=== PATIENT | male | born 1955 | race Caucasian/White ===

== ENCOUNTER 2018-05-25 13:44 | Emergency (ER) | payer BC ==
--- NOTE | 2018-05-25 13:53 | ERPHSYRPT ---
- History of Present Illness Time Seen by Provider: 05/25/18 13:53 Historian: patient, family Exam Limitations: no limitations Physician History: 62 y/o white male presents with vomiting and diarrhea for 3 days. other family members had similar sx but his sx have persisted. he cannot hold any fluids down orally. he denies cp, soa and denies abd pain. pt has continued to take his "water pill" Timing/Duration: day(s) Activities at Onset: none Quality: other (no sig abd pain) Abdominal Pain Onset Location: other (none) Severity of Pain-Max: none Severity of Pain-Current: none Modifying Factors: Improves With: eating (worsens), vomiting, other (diarrhea) Associated Symptoms: diarrhea, loss of appetite, nausea, vomiting, weakness, No back, No chest pain, No diaphoresis, No shortness of breath Allergies/Adverse Reactions: No Known Drug Allergies Allergy (Verified 05/25/18 14:01) Home Medications: Aspirin EC 81 mg [Ecotrin 81 mg] 81 mg PO DAILY 05/25/18 [History] Baclofen 1 tab PO TID 05/25/18 [History] Carbamazepine 200 mg PO BID 05/25/18 [History] Cyproheptadine HCl 4 mg PO BID 05/25/18 [History] Ezetimibe 10 mg PO DAILY 05/25/18 [History] Furosemide 40 mg PO DAILY 05/25/18 [History] Losartan Potassium 100 mg PO DAILY 05/25/18 [History] Metoprolol Succinate 100 mg [Toprol Xl 100 MG] 100 mg PO DAILY 05/25/18 [ History] PARoxetine HCl [Paroxetine HCl] 10 mg PO DAILY 05/25/18 [History] Potassium Chloride [Klor-Con M20] 20 meq PO DAILY 05/25/18 [History] Pyridoxine HCl (Vitamin B6) [B-6] 100 mg PO DAILY 05/25/18 [History] Warfarin Sodium 5 mg [Coumadin 5 MG] 5 mg PO UD 05/25/18 [History] metOLazone [Metolazone] 2.5 mg PO 3XW 05/25/18 [History] - Review of Systems Constitutional: Weakness Eyes: No Symptoms Ears, Nose, & Throat: No Symptoms Respiratory: No Symptoms, No Cough, No Dyspnea, No Stridor, No Wheezing Cardiac: No Symptoms, No Chest Pain, No Palpitations, No Syncope Abdominal/Gastrointestinal: Nausea, Vomiting, Diarrhea, Appetite Changes ( decreased), No Abdominal Pain Genitourinary Symptoms: No Symptoms, No Dysuria, No Frequency, No Hematuria Musculoskeletal: No Symptoms, No Back Pain Skin: No Symptoms Neurological: No Symptoms Psychological: No Symptoms Endocrine: No Symptoms Hematologic/Lymphatic: No Symptoms Immunological/Allergic: No Symptoms All Other Systems: Reviewed and Negative - Past Medical History Pertinent Past Medical History: Yes Neurological History: No Pertinent History ENT History: No Pertinent History Respiratory History: No Pertinent History Endocrine Medical History: No Pertinent History Musculoskeletal History: No Pertinent History GI Medical History: No Pertinent History History: No Pertinent History Psycho-Social History: No Pertinent History Male Reproductive Disorders: No Pertinent History - Past Surgical History Neuro Surgical History: No Pertinent History Respiratory: No Pertinent History Gastrointestinal: No Pertinent History Genitourinary: No Pertinent History Musculoskeletal: No Pertinent History Male Surgical History: No Pertinent History - Nursing Vital Signs Nursing Vital Signs: Initial Vital Signs Temperature 97.8 F 05/25/18 13:50 Pulse Rate 79 05/25/18 13:50 Blood Pressure 115/84 05/25/18 13:50 O2 Sat by Pulse Oximetry 96 05/25/18 13:50 Pain Scale Pain Intensity 5 - Physical Exam General Appearance: alert, obese, other (weak) Eye Exam: PERRL/EOMI, eyes nml inspection Ears, Nose, Throat Exam: dry mucous membranes Neck Exam: normal inspection, non-tender, supple, full range of motion Respiratory Exam: normal breath sounds, lungs clear, airway intact, No chest tenderness, No respiratory distress, No accessory muscle use, No rhonchi, No wheezing, No stridor Cardiovascular Exam: regular rate/rhythm, normal heart sounds, normal peripheral pulses Gastrointestinal/Abdomen Exam: soft, normal bowel sounds, No tenderness, No guarding, No rebound Rectal Exam: not done Back Exam: normal inspection, normal range of motion, No CVA tenderness, No vertebral tenderness Extremity Exam: normal inspection, normal range of motion, pelvis stable Neurologic Exam: alert, oriented x 3, cooperative, pantograph setter II-XII nml as tested Skin Exam: normal color, warm, dry Lymphatic Exam: adenopathy SpO2 Interpretation: normal Oxygen Delivery: Room Air - Course Nursing assessment & vital signs reviewed: Yes Ordered Tests: Active Orders 24 hr Category Date Time Status IV Insertion STAT Care 05/25/18 14:01 Active AMYLASE Stat Lab 05/25/18 14:15 Completed CBC W DIFF Stat Lab 05/25/18 14:15 Completed CMP Stat Lab 05/25/18 14:15 Completed LIPASE Stat Lab 05/25/18 14:15 Completed UA W/RFX UR CULTURE Stat Lab 05/25/18 Completed Medication Summary Generic Name Dose Route Start Last Admin Trade Name Freq PRN Reason Stop Dose Admin Sodium Chloride 1,000 mls @ 999 mls/hr 05/25/18 19:22 Sodium Chloride 0.9% 1000 Ml IV 05/25/18 20:22 .Q1H1M STA Potassium Bicarbonate 25 meq 05/25/18 19:23 K-Lyte 25 Meq PO 05/25/18 19:24 STAT ONE Discontinued Medications Generic Name Dose Route Start Last Admin Trade Name Freq PRN Reason Stop Dose Admin Sodium Chloride 1,000 mls @ 999 mls/hr 05/25/18 14:01 05/25/18 16:18 Sodium Chloride 0.9% 1000 Ml IV 05/25/18 15:01 Infused .Q1H1M STA Infusion Sodium Chloride Confirm 05/25/18 14:37 Sodium Chloride 0.9% 1000 Ml Administered 05/25/18 14:38 Dose 1,000 mls @ ud .ROUTE .STK-MED ONE Potassium Chloride 20 meq in 100 mls @ 50 mls/hr 05/25/18 14:57 05/25/18 15: 02 Potassium Chloride 20 Meq In Water 100ml IV 05/25/18 16:56 50 mls/hr STAT ONE Administration Potassium Chloride Confirm 05/25/18 15:00 Potassium Chloride 20 Meq In Water 100ml Administered 05/25/18 15:01 Dose 100 mls @ ud IV .STK-MED ONE Sodium Chloride 1,000 mls @ 999 mls/hr 05/25/18 15:54 05/25/18 18:16 Sodium Chloride 0.9% 1000 Ml IV 05/25/18 16:54 Infused .Q1H1M STA Infusion Sodium Chloride Confirm 05/25/18 16:20 Sodium Chloride 0.9% 1000 Ml Administered 05/25/18 16:21 Dose 1,000 mls @ ud .ROUTE .STK-MED ONE Ondansetron HCl 4 mg 05/25/18 14:01 05/25/18 14:42 Zofran 4 Mg/2 Ml Vial IV 05/25/18 14:02 4 mg STAT ONE Administration Ondansetron HCl Confirm 05/25/18 14:37 Zofran 4 Mg/2 Ml Vial Administered 05/25/18 14:38 Dose 4 mg .ROUTE .STK-MED ONE Potassium Bicarbonate 25 meq 05/25/18 15:54 05/25/18 16:39 K-Lyte 25 Meq PO 05/25/18 15:55 25 meq STAT ONE Administration Potassium Bicarbonate Confirm 05/25/18 16:20 K-Lyte 25 Meq Administered 05/25/18 16:21 Dose 25 meq .ROUTE .STK-MED ONE Lab/Rad Data: Laboratory Result Diagrams 05/25/18 14:15 05/25/18 14:15 Laboratory Results 05/25/18 05/25/18 05/25/18 Range/Units Unknown 14:15 14:15 WBC (4.0-10.5) K/mm3 RBC (4.1-5.6) M/mm3 Hgb (12.5-18.0) gm/dl Hct (42-50) % MCV (78-100) fl MCH (26-32) pg MCHC (32-36) g/dl RDW (11.5-14.0) % Plt Count (150-450) K/mm3 MPV (6-9.5) fl Gran % (36.0-66.0) % Eos # (Auto) (0-0.5) Absolute Lymphs (auto) (1.0-4.6) Absolute Monos (auto) (0.0-1.3) Lymphocytes % (24.0-44.0) % Monocytes % (0.0-12.0) % Eosinophils % (0.00-5.0) % Basophils % (0.0-0.4) % Absolute Granulocytes (1.4-6.9) Basophils # (0-0.4) Sodium 138 (137-145) mmol/L Potassium 2.6 L* (3.5-5.1) mmol/L Chloride 96 L (98-107) mmol/L Carbon Dioxide 30 (22-30) mmol/L Anion Gap 15.1 H (5-15) MEQ/L BUN 29 H (9-20) mg/dL Creatinine 0.99 (0.66-1.25) mg/dL Estimated GFR > 60.0 ML/MIN Glucose 126 H (74-106) mg/dL Calcium 8.9 (8.4-10.2) mg/dL Total Bilirubin 1.20 (0.2-1.3) mg/dL AST 69 H (17-59) U/L ALT 60 H (0-50) U/L Alkaline Phosphatase 150 H (38-126) U/L Serum Total Protein 7.4 (6.3-8.2) g/dL Albumin 4.3 (3.5-5.0) g/dL Amylase 74 (30-110) U/L Lipase 139 (23-300) U/L Urine Color YELLOW (YELLOW) Urine Appearance CLEAR (CLEAR) Urine pH 7.0 (5-6) Ur Specific [place] 1.018 (1.005-1.025) Urine Protein NEGATIVE (Negative) Urine Ketones NEGATIVE (NEGATIVE) Urine Blood SMALL (0-5) Thuan/ul Urine Nitrite NEGATIVE (NEGATIVE) Urine Bilirubin NEGATIVE (NEGATIVE) Urine Urobilinogen 2 (0-1) mg/dL Ur Leukocyte Esterase NEGATIVE (NEGATIVE) Urine WBC (Auto) 0-2 (0-5) /HPF Urine RBC (Auto) 6-10 (0-2) /HPF U Epithel Cells (Auto) NONE (FEW) /HPF Urine Bacteria (Auto) NONE (NEGATIVE) /HPF Urine Culture Reflexed NO (NO) Urine Glucose NEGATIVE (NEGATIVE) mg/dL Influenza Type A Ag NEGATIVE (NEGATIVE) Influenza Type B Ag NEGATIVE (NEGATIVE) RSV (PCR) NEGATIVE (Negative) 05/25/18 Range/Units 14:15 WBC 10.8 H (4.0-10.5) K/mm3 RBC 5.28 (4.1-5.6) M/mm3 Hgb 15.7 (12.5-18.0) gm/dl Hct 45.0 (42-50) % MCV 85.2 (78-100) fl MCH 29.7 (26-32) pg MCHC 34.9 (32-36) g/dl RDW 15.1 H (11.5-14.0) % Plt Count 172 (150-450) K/mm3 MPV 9.2 (6-9.5) fl Gran % 70.0 H (36.0-66.0) % Eos # (Auto) 0.03 (0-0.5) Absolute Lymphs (auto) 1.92 (1.0-4.6) Absolute Monos (auto) 1.26 (0.0-1.3) Lymphocytes % 17.9 L (24.0-44.0) % Monocytes % 11.7 (0.0-12.0) % Eosinophils % 0.3 (0.00-5.0) % Basophils % 0.1 (0.0-0.4) % Absolute Granulocytes 7.53 H (1.4-6.9) Basophils # 0.01 (0-0.4) Sodium (137-145) mmol/L Potassium (3.5-5.1) mmol/L Chloride (98-107) mmol/L Carbon Dioxide (22-30) mmol/L Anion Gap (5-15) MEQ/L BUN (9-20) mg/dL Creatinine (0.66-1.25) mg/dL Estimated GFR ML/MIN Glucose (74-106) mg/dL Calcium (8.4-10.2) mg/dL Total Bilirubin (0.2-1.3) mg/dL AST (17-59) U/L ALT (0-50) U/L Alkaline Phosphatase (38-126) U/L Serum Total Protein (6.3-8.2) g/dL Albumin (3.5-5.0) g/dL Amylase (30-110) U/L Lipase (23-300) U/L Urine Color (YELLOW) Urine Appearance (CLEAR) Urine pH (5-6) Ur Specific [place] (1.005-1.025) Urine Protein (Negative) Urine Ketones (NEGATIVE) Urine Blood (0-5) Thuan/ul Urine Nitrite (NEGATIVE) Urine Bilirubin (NEGATIVE) Urine Urobilinogen (0-1) mg/dL Ur Leukocyte Esterase (NEGATIVE) Urine WBC (Auto) (0-5) /HPF Urine RBC (Auto) (0-2) /HPF U Epithel Cells (Auto) (FEW) /HPF Urine Bacteria (Auto) (NEGATIVE) /HPF Urine Culture Reflexed (NO) Urine Glucose (NEGATIVE) mg/dL Influenza Type A Ag (NEGATIVE) Influenza Type B Ag (NEGATIVE) RSV (PCR) (Negative) - Progress Progress: improved, re-examined Progress Note: 05/25/18 19:24 "i feel a whole helluvalot better" Counseled pt/family regarding: lab results, diagnosis, need for follow-up - Departure Time of Disposition: 19:25 Departure Disposition: Home Clinical Impression: Hypokalemia, Vomiting and diarrhea Condition: Stable Critical Care Time: No Referrals: CORBIN [facility] [Primary Care Provider] - Additional Instructions: drink plenty of fluids until tomorrow afternoon. tomorrow afternoon may begin soft diet slowly advancing to regular diet. hold your medications tonight. do not start your water pill for 2 days. call your primary doctor tomorrow for further management. go to hospital lab on 05/27/18 morning to recheck your labs.
[2018-05-25] MEDS ORDERED: Sodium Chloride 0.9% 1000 ML 1,000 ML IV STA ×3 (14:01→19:22)
[2018-05-25] MEDS ORDERED: Zofran 4 MG/2 ML VIAL IV ONE (14:01)
[2018-05-25 14:26] LABS: BASOPHIL % 0.1 % (0.0-0.4); Basophil (Absolute #) 0.01 (0-0.4); Eosinophil % 0.3 % (0.00-5.0); Eosinophil (Absolute #) 0.03 (0-0.5); Granulocyte Absolute (ANC) 7.53 (1.4-6.9); Hemoglobin 15.7 gm/dl (12.5-18.0); Lymphocyte (Absolute #) 1.92 (1.0-4.6); Lymphocytes % 17.9 % (24.0-44.0); Mean Cell Volume 85.2 fl (78-100); Mean Corpuscular Hemoglobin 29.7 pg (26-32); Mean Corpuscular Hgb Concent. 34.9 g/dl (32-36); Mean Platelet Volume 9.2 fl (6-9.5); Monocyte (Absolute #) 1.26 (0.0-1.3); Monocytes % 11.7 % (0.0-12.0); Platelet Count 172 K/mm3 (150-450); Red Blood Count 5.28 M/mm3 (4.1-5.6); Red Cell Distribution Width 15.1 % (11.5-14.0); White Blood Count 10.8 K/mm3 (4.0-10.5)
[2018-05-25] MEDS ORDERED: Zofran 4 MG/2 ML VIAL ONE (14:37)
[2018-05-25] MEDS ORDERED: Sodium Chloride 0.9% 1000 ML 1,000 ML ONE ×3 (14:37→19:26)
[2018-05-25 14:46] LABS: ALBUMIN 4.3 g/dL (3.5-5.0); ALKALINE PHOSPHATASE 150 U/L (38-126); AMYLASE 74 U/L (30-110); ANION GAP 15.1 MEQ/L (5-15); BLOOD UREA NITROGEN 29 mg/dL (9-20); CHLORIDE 96 mmol/L (98-107); Calcium 8.9 mg/dL (8.4-10.2); Carbon Dioxide 30 mmol/L (22-30); Creatinine 1 0.99 mg/dL (0.66-1.25); Glucose 126 mg/dL (74-106); LIPASE 139 U/L (23-300); SGOT/AST 69 U/L (17-59); SGPT/ALT 60 U/L (0-50); SODIUM 138 mmol/L (137-145); Total Protein 7.4 g/dL (6.3-8.2)
[2018-05-25 14:49] LABS: Potassium 2.6 mmol/L (3.5-5.1)
[2018-05-25] MEDS ORDERED: POTASSIUM CHLORIDE 20 mEq IN WATER 100ML 20 MEQ/100 ML BAG IV ONE (14:57)
[2018-05-25] MEDS ORDERED: POTASSIUM CHLORIDE 20 mEq IN WATER 100ML 100 ML IV ONE (15:00)
[2018-05-25 15:02] LABS: INFLUENZA A NEGATIVE (NEGATIVE); INFLUENZA B NEGATIVE (NEGATIVE); RESPIRATORY SYNCTIAL VIRUS NEGATIVE (Negative)
[2018-05-25] MEDS ORDERED: K-LYTE 25 MEQ PO ONE ×2 (15:54→19:23)
[2018-05-25] MEDS ORDERED: K-LYTE 25 MEQ ONE ×2 (16:20→19:27)
[2018-05-25 18:32] LABS: Appearance CLEAR (CLEAR); Bilirubin NEGATIVE (NEGATIVE); Blood SMALL Ery/ul (0-5); Glucose NEGATIVE (NEGATIVE); Ketones NEGATIVE (NEGATIVE); Leukocyte Esterase NEGATIVE (NEGATIVE); Nitrite NEGATIVE (NEGATIVE); Protein,Urine Dip NEGATIVE (Negative); Specific Gravity 1.018 (1.005-1.025); Urobilinogen 2 mg/dL (0-1)
[2018-05-25 20:42] VITALS: BP 133/60; PULSE 64; O2SAT 96
== END 2018-05-25 20:46 | disposition home or self-care (01) ==
LOC: ED 13:44
DX: E87.6 Hypokalemia (principal); R11.2 Nausea with vomiting, unspecified; R19.7 Diarrhea, unspecified; Z79.899 Other long term (current) drug therapy; Z79.01 Long term (current) use of anticoagulants
CPT/HCPCS: 36415; 80053; 81001; 82150; 83690; 85025; 87631; 96360; 96365; 96374; 96375; 99284; J2405; J3480; A9270-GY

== ENCOUNTER 2024-04-28 08:25 | Day surgery (SDC) | payer OTHER ==
[2024-04-28 09:14] VITALS: BP 164/93; PULSE 106; RESP 16; TEMP 96.3; O2SAT 95
[2024-04-28 09:37] LABS: ALBUMIN 4.1 g/dL (3.5-5.0); ANION GAP 14.9 MEQ/L (5-15); BILIRUBIN,TOTAL 1.2 mg/dL (0.2-1.3); Calcium 9.1 mg/dL (8.4-10.2); Creatinine 1 1.32 mg/dL (0.66-1.25); EST GLOMERULAR FILTRATION RATE 59.5 ML/MIN; Total Protein 7.4 g/dL (6.3-8.2)
[2024-04-28 09:40] LABS: Potassium 2.6 mmol/L (3.5-5.1)
[2024-04-28] MEDS: Klor Con PO ONE (11:23)
== END 2024-04-28 12:00 | disposition home or self-care (01) ==
LOC: SDC 08:25
PROVIDERS: ATTEND Surgery
DX: E87.6 Hypokalemia (principal); Z53.8 Procedure and treatment not carried out for other reasons
CPT/HCPCS: 36415; 80053; 84132; 93005; A9270-GY

== ENCOUNTER 2024-05-24 10:23 | Observation (INO) | payer OTHER ==
--- NOTE | 2024-05-24 11:00 | ERPHSYRPT ---
- History of Present Illness Time Seen by Provider: 05/24/24 10:58 Source: patient Exam Limitations: no limitations Patient Subjective Stated Complaint: Abnormal labs- K+ 2.8 Triage Nursing Assessment: Patient ambulated back to ED and transferred self to bed. Patient A+O X 3. Patient's skin pink, warm and dry. Patient states he had routine labs done today for his cardiology appt tomorrow and received a call to come to ED for low potassium. Patient K+ noted to be 2.8. Patient denies pain or discomfort. Physician History: 68-year-old male with history of hypokalemia presents to our ED for treatment of hypokalemia. 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 Workup revealed a potassium of 2.8. Patient sent to our ED for potassium replacement. Patient otherwise asymptomatic. No chest pain or shortness of breath. No nausea vomiting or diaphoresis. Patient feels well voices no other complaints or concerns at this time. Portions of this note were created with voice recognition technology. There may be grammatical, spelling, punctuation or sound alike errors Timing/Duration: today Severity: mild Modifying Factors: Improves With: nothing Associated Symptoms: denies symptoms Allergies/Adverse Reactions: No Known Drug Allergies Allergy (Verified 05/24/24 10:35) Home Medications: Baclofen 20 mg PO BID 05/25/18 [History] Ezetimibe 10 mg PO HS 05/25/18 [History] Furosemide 40 mg PO BID 05/25/18 [History] Warfarin Sodium 5 mg [Coumadin 5 MG] 5 mg PO DAILY 05/25/18 [History] Amlodipine Besylate [Norvasc] 2.5 mg PO DAILY 04/25/24 [History] Atorvastatin Calcium [Lipitor] 40 mg PO HS 04/25/24 [History] Hydroxyzine HCl 25 mg [Atarax 25 mg] 25 mg PO HS PRN 04/25/24 [History] Losartan Potassium [Cozaar] 100 mg PO DAILY 04/25/24 [History] Topiramate 100 mg [Topamax 100 MG] 50 mg PO HS 04/25/24 [History] Venlafaxine HCl ER 75 mg [Effexor XR 75 MG] 75 mg PO BID 04/25/24 [History] Aspirin EC 325 mg [Ecotrin 325 MG] 325 mg PO HS 05/24/24 [History] Hx Influenza Vaccination/Date Given: No Hx Pneumococcal Vaccination/Date Given: No Immunizations Up to Date: Yes Travel Risk - International Travel Have you traveled outside of the country in past 3 weeks: No - Emerging Infectious Disease Are you exhibiting symptoms associated with any current EIDs: No - Review of Systems Constitutional: No Symptoms, No Fever, No Chills Eyes: No Symptoms Ears, Nose, & Throat: No Symptoms Respiratory: No Symptoms, No Cough, No Dyspnea Cardiac: No Symptoms, No Chest Pain, No Edema, No Syncope Abdominal/Gastrointestinal: No Symptoms, No Abdominal Pain, No Nausea, No Vomiting, No Diarrhea Genitourinary Symptoms: No Symptoms, No Dysuria Musculoskeletal: No Symptoms, No Back Pain, No Neck Pain Skin: No Symptoms, No Rash Neurological: No Symptoms, No Dizziness, No Focal Weakness, No Sensory Changes Psychological: No Symptoms Endocrine: No Symptoms Hematologic/Lymphatic: No Symptoms Immunological/Allergic: No Symptoms All Other Systems: Reviewed and Negative - Past Medical History Pertinent Past Medical History: Yes Neurological History: Peripheral Neuropathy ENT History: No Pertinent History Cardiac History: Coronary Artery Disease, Deep Vein Thrombosis, Hypertension Respiratory History: Sleep Apnea Endocrine Medical History: No Pertinent History Musculoskeletal History: Osteoarthritis GI Medical History: No Pertinent History History: No Pertinent History Psycho-Social History: No Pertinent History Male Reproductive Disorders: No Pertinent History Other Medical History: BLOOD CLOTS MAY HAVE CAUSED THE NEUROPATHY, HAS BEEN SEEN BY NEUROLOGISTS. PT SEES DR. PEREZ. A FEW STINTS IN THE HEART - Past Surgical History Past Surgical History: Yes Neuro Surgical History: No Pertinent History Cardiac: Cardiac Stent Respiratory: No Pertinent History Gastrointestinal: No Pertinent History Genitourinary: No Pertinent History Musculoskeletal: Other Male Surgical History: No Pertinent History Other Surgical History: 5 stents. carpal tunnel release. Knee surgery - Social History Smoking Status: Never smoker Exposure to second hand smoke: No Drug Use: none Patient Lives Alone: No - Social Determinants of Health Will the patient participate in the screening: Yes Do you worry about a steady place to live?: No Do you have any problems with any of the following?: No known problems In the past 12 months,have you had to go without utilities?: No Transportation Issues: No Has anyone in your support network made you feel unsafe?: No Have you or anyone in your house had to go without enough: No - Nursing Vital Signs Nursing Vital Signs: Initial Vital Signs O2 Sat by Pulse Oximetry 96 05/24/24 10:31 Pain Scale Pain Intensity 0 - Physical Exam General Appearance: no apparent distress, alert Eye Exam: PERRL/EOMI, eyes nml inspection Ears, Nose, Throat Exam: normal ENT inspection, moist mucous membranes Neck Exam: normal inspection, non-tender, supple, full range of motion Respiratory Exam: normal breath sounds, lungs clear, airway intact, No respiratory distress Cardiovascular Exam: regular rate/rhythm, normal heart sounds, normal peripheral pulses Gastrointestinal/Abdomen Exam: soft, normal bowel sounds, No tenderness, No mass Back Exam: normal inspection, normal range of motion, No CVA tenderness, No vertebral tenderness Extremity Exam: normal inspection, normal range of motion, pelvis stable Neurologic Exam: alert, oriented x 3, cooperative, normal mood/affect, nml cerebellar function, nml station & gait, sensation nml, No motor deficits Skin Exam: normal color, warm, dry, No rash Lymphatic Exam: No adenopathy SpO2 Interpretation: normal SpO2: 96 O2 Delivery: Room Air - Course Nursing assessment & vital signs reviewed: Yes EKG Interpreted by Me: RATE (78), Sinus Rhythm, NORMAL AXIS, NORMAL INTERVALS, NORMAL QRS Ordered Tests: Active Orders 24 hr Category Date Time Status Up With Assistance ROUTINE Activity 05/24/24 18:10 Completed Call Admit Doctor for Orders ON ADMISSION Care 05/24/24 18:10 Completed Code Status Order ROUTINE Care 05/24/24 18:10 Active IV Insertion STAT Care 05/24/24 10:[address] in Observation ROUTINE Care 05/24/24 18:10 Active Telemetry q6h Care 05/24/24 18:10 Completed CBC W DIFF Stat Lab 05/24/24 10:50 Completed CMP Stat Lab 05/24/24 10:50 Completed CMP Stat Lab 05/24/24 16:16 Completed Pulse Oximetry CONTINUOUS RT 05/24/24 18:10 Completed Transfer Order Routine Transfer 05/24/24 Completed Medication Summary Generic Name Dose Route Start Last Admin Trade Name Freq PRN Reason Stop Dose Admin Acetaminophen 650 mg 05/24/24 19:27 Acetaminophen 325 Mg Tablet PO 06/23/24 19:26 Q6H PRN PRN PAIN AND/OR FEVER Baclofen 20 mg 05/24/24 22:00 05/24/24 19:59 Baclofen 10 Mg Tablet PO 06/23/24 21:59 20 mg BID MARCELO Administration Ezetimibe 10 mg 05/24/24 22:00 05/24/24 19:59 Ezetimibe 10 Mg Tab PO 06/23/24 21:59 10 mg HS MARCELO Administration Furosemide 40 mg 05/24/24 22:00 05/24/24 19:58 Furosemide 40 Mg Tablet PO 06/23/24 21:59 40 mg BID MARCELO Administration Hydroxyzine HCl 25 mg 05/24/24 19:27 05/24/24 19:58 Hydroxyzine Hcl 25 Mg Tablet PO 06/23/24 19:26 25 mg HS PRN Administration ANXIETY Non-Formulary Medication 100 mg 05/25/24 10:00 Losartan Potassium [Cozaar] PO 06/24/24 09:59 DAILY MARCELO Non-Formulary Medication 2.5 mg 05/25/24 10:00 Amlodipine Besylate [Norvasc] PO 06/24/24 09:59 DAILY MARCELO Potassium Chloride 40 meq 05/24/24 19:28 05/24/24 19:46 Potassium Chloride Tab 10 Meq Tab PO 05/24/24 19:29 40 meq ONCE ONE Administration Simvastatin 40 mg 05/24/24 22:00 05/24/24 19:58 Simvastatin 20 Mg Tablet PO 06/23/24 21:59 40 mg HS MARCELO Administration Topiramate 50 mg 05/24/24 22:00 05/24/24 20:24 Topiramate 50 Mg Tablet PO 06/23/24 21:59 50 mg HS MARCELO Administration Venlafaxine HCl 75 mg 05/24/24 22:00 05/24/24 19:58 Venlafaxine Hcl 75 Mg Extended Release Capsule PO 06/23/24 21:59 75 mg BID MARCELO Administration Warfarin Sodium 5 mg 05/24/24 22:00 05/24/24 20:24 Warfarin Sodium 5 Mg Tablet PO 06/23/24 21:59 5 mg HS MARCELO Administration Discontinued Medications Generic Name Dose Route Start Last Admin Trade Name Freq PRN Reason Stop Dose Admin Atorvastatin Calcium 40 mg 05/24/24 22:00 Atorvastatin Calcium 40 Mg Tablet PO 06/23/24 21:59 HS MARCELO Magnesium Sulfate/Dextrose 100 mls @ 100 mls/hr 05/24/24 11:00 05/24/24 12:19 Magnesium 1 Gm / 100 Ml D5w IV 05/24/24 12:59 100 mls/hr Q1H MARCELO Administration Potassium Chloride 20 meq in 100 mls @ 50 mls/hr 05/24/24 11:00 05/24/24 13:32 Potassium Chloride 20 Meq In Water 100ml IV 05/24/24 14:59 50 mls/hr Q2H MARCELO Administration Sodium Chloride 500 mls @ 50 mls/hr 05/24/24 11:01 05/24/24 11:22 Sodium Chloride 0.9% 500 Ml IV 05/24/24 21:00 50 mls/hr .Q10H ONE Administration Sodium Chloride Confirm 05/24/24 11:16 Sodium Chloride 0.9% 500 Ml Administered 05/24/24 11:17 Dose 500 mls @ ud IV .STK-MED ONE Potassium Chloride 20 meq in 100 mls @ 50 mls/hr 05/24/24 16:45 05/24/24 18:00 Potassium Chloride 20 Meq In Water 100ml IV 05/24/24 20:44 50 mls/hr Q2H MARCELO Administration Potassium Chloride 20 meq in 100 mls @ 50 mls/hr 05/24/24 16:45 05/24/24 19 :42 Potassium Chloride 20 Meq In Water 100ml IV 05/24/24 20:44 Not Given Q2H MARCELO Magnesium Sulfate/Dextrose Confirm 05/24/24 11:30 Magnesium 1 Gm / 100 Ml D5w Administered 05/24/24 11:31 Dose 100 mls @ ud IV .STK-MED ONE Magnesium Sulfate/Dextrose Confirm 05/24/24 12:18 Magnesium 1 Gm / 100 Ml D5w Administered 05/24/24 12:19 Dose 100 mls @ ud IV .STK-MED ONE Non-Formulary Medication 50 mg 05/24/24 22:00 Topiramate 100 Mg [Topamax 100 Mg] PO 06/23/24 21:59 HS MARCELO Potassium Chloride 40 meq 05/24/24 10:57 05/24/24 11:21 Potassium Chloride Tab 10 Meq Tab PO 05/24/24 10:58 40 meq STAT ONE Administration Potassium Chloride Confirm 05/24/24 11:16 Potassium Chloride Tab 10 Meq Tab Administered 05/24/24 11:17 Dose 40 meq .ROUTE .STK-MED ONE Topiramate Confirm 05/24/24 19:55 Topiramate 50 Mg Tablet Administered 05/24/24 19:56 Dose 100 mg .ROUTE .STK-[facility] ONE Warfarin Sodium 5 mg 05/25/24 10:00 Warfarin Sodium 5 Mg Tablet PO 06/24/24 09:59 DAILY MARCELO Warfarin Sodium Confirm 05/24/24 20:19 Warfarin Sodium 5 Mg Tablet Administered 05/24/24 20:20 Dose 5 mg .ROUTE .[facility] ONE Lab/Rad Data: Laboratory Result Diagrams 05/24/24 10:50 05/24/24 16:16 Laboratory Results 05/24/24 05/24/24 05/24/24 Range/Units 16:16 10:50 10:50 WBC 10.0 H (4.23-9.07) x10^3/uL RBC 5.04 (4.63-6.08) x10^6/uL Hgb 14.3 (13.7-17.5) g/dL Hct 42.3 (40.1-51.0) % MCV 83.9 (79.0-92.2) fL MCH 28.4 (25.7-32.2) pg MCHC 33.8 (32.3-36.5) g/dL RDW 15.1 H (11.6-14.4) % Plt Count 203 (163-337) x10^3/uL MPV 9.4 (9.4-12.4) fL Gran % 64.9 (34.0-67.9) % Immature Gran % (Auto) 0.4 (0.001-0.429) % Nucleat RBC Rel Count 0.0 (0.00-0.2) % Eos # (Auto) 0.49 (0.04-0.54) x10^3/uL Immature Gran # (Auto) 0.04 H (0.001-0.031) x10^3u/L Absolute Lymphs (auto) 2.16 (1.32-3.57) x10^3/uL Absolute Monos (auto) 0.77 (0.30-0.82) x10^3/uL Absolute Nucleated RBC 0.00 (0.00-0.012) x10^3u/L Lymphocytes % 21.6 L (21.8-53.1) % Monocytes % 7.7 (5.3-12.2) % Eosinophils % 4.9 (0.8-7.0) % Basophils % 0.5 (0.2-1.2) % Absolute Granulocytes 6.51 H (1.78-5.38) x10^3/uL Basophils # 0.05 (0.01-0.08) x10^3/uL Sodium 137 138 (135-145) mmol/L Potassium 3.3 L D 2.5 L* (3.5-5.1) mmol/L Chloride 99 100 (98-107) mmol/L Carbon Dioxide 34 H 27 (22-30) mmol/L Anion Gap 7.1 14.0 (5-15) MEQ/L BUN 28 H 29 H (9-20) mg/dL Creatinine 1.54 H 1.49 H (0.66-1.25) mg/dL Estimated GFR 49.4 51.4 ML/MIN Glucose 97 164 H (74-106) mg/dL Calcium 8.9 8.9 (8.4-10.2) mg/dL Total Bilirubin 0.60 0.80 (0.2-1.3) mg/dL AST 47 50 (17-59) U/L ALT 45 47 (0-50) U/L Alkaline Phosphatase 113 122 (38-126) U/L Serum Total Protein 7.2 7.7 (6.3-8.2) g/dL Albumin 3.9 4.2 (3.5-5.0) g/dL - Progress Progress: improved Progress Note: 68-year-old male presents to our ED for evaluation of hypokalemia. Potassium as per outpatient lab 2.8. Potassium ordered in our ED was 2.5. Physical exam essentially nonremarkable. Patient is asymptomatic. We initiated potassium replacement in our ED with 2 g of mag, 40 mill equivalents of potassium chloride and 40 mEq of K rider. Potassium increased from 2.5-3.3. Patient required additional potassium replacement. The decision was made to admit for ongoing treatment. Case discussed with hospitalist Dr. Haddad who accepts admission to observation at approximately 5 PM. Plan of care discussed with patient. He agrees to admission to [facility] for further evaluation and treatment. Portions of this note were created with voice recognition technology. There may be grammatical, spelling, punctuation or sound alike errors Complexity of problem addressed is moderate acute complicated no critical care time. Complexity of data reviewed and analyzed is extensive. Test ordered chest reviewed results analyzed and correlated clinically with history and p hysical examination. Management discussed with hospitalist who accepts admission to observation. Risk of complication or risk of morbidity/mortality of patient management is high. Patient requires hospitalization for further evaluation and treatment. Vital stable. Time spent to admit patient is approximately 15 minutes. Plan of care established for shared decision making. No social determinants of health present to impede follow-up. Portions of this note were created with voice recognition technology. There may be grammatical, spelling, punctuation or sound alike errors 05/25/24 00:20 Counseled pt/family regarding: lab results, diagnosis, need for follow-up - Departure Departure Disposition: Home Clinical Impression: Hypokalemia, Prolonged QT interval Condition: Stable Critical Care Time: No
[2024-05-24] MEDS ORDERED: Klor Con ONE (11:16)
[2024-05-24] MEDS ORDERED: Sodium Chloride 0.9% 500 ML 500 ML IV ONE (11:16)
[2024-05-24] MEDS: Klor Con PO ONE ×2 (11:21→19:46)
[2024-05-24] MEDS: Sodium Chloride 0.9% 500 ML 500 ML IV ONE (11:22)
[2024-05-24] MEDS: POTASSIUM CHLORIDE 20 mEq IN WATER 100ML 20 MEQ/100 ML BAG IV SCH ×3 (11:25→19:42)
[2024-05-24 11:28] LABS: Absolute Neutrophil Ct (ANC) 6.51 x10^3/uL (1.78-5.38); BASOPHIL % 0.5 % (0.2-1.2); Basophil (Absolute #) 0.05 x10^3/uL (0.01-0.08); Eosinophil % 4.9 % (0.8-7.0); Eosinophil (Absolute #) 0.49 x10^3/uL (0.04-0.54); Hematocrit 42.3 % (40.1-51.0); Hemoglobin 14.3 g/dL (13.7-17.5); IMMATURE GRAN # 0.04 x10^3u/L (0.001-0.031); IMMATURE GRAN % 0.4 % (0.001-0.429); Lymphocyte (Absolute #) 2.16 x10^3/uL (1.32-3.57); Lymphocytes % 21.6 % (21.8-53.1); Mean Cell Volume 83.9 fL (79.0-92.2); Mean Corpuscular Hemoglobin 28.4 pg (25.7-32.2); Mean Corpuscular Hgb Concent. 33.8 g/dL (32.3-36.5); Mean Platelet Volume 9.4 fL (9.4-12.4); Monocyte (Absolute #) 0.77 x10^3/uL (0.30-0.82); Monocytes % 7.7 % (5.3-12.2); Neutrophil % 64.9 % (34.0-67.9); Platelet Count 203 x10^3/uL (163-337); Red Blood Count 5.04 x10^6/uL (4.63-6.08); Red Cell Distribution Width 15.1 % (11.6-14.4)
[2024-05-24] MEDS ORDERED: Magnesium 1 Gm / 100 Ml D5W*** 100 ML IV ONE ×2 (11:30→12:18)
[2024-05-24] MEDS: Magnesium 1 Gm / 100 Ml D5W*** 100 ML IV SCH (11:32)
[2024-05-24 11:44] LABS: ALBUMIN 4.2 g/dL (3.5-5.0); BILIRUBIN,TOTAL 0.8 mg/dL (0.2-1.3); Calcium 8.9 mg/dL (8.4-10.2); Creatinine 1 1.49 mg/dL (0.66-1.25); EST GLOMERULAR FILTRATION RATE 51.4 ML/MIN; Total Protein 7.7 g/dL (6.3-8.2)
[2024-05-24 11:47] LABS: Potassium 2.5 mmol/L (3.5-5.1)
[2024-05-24 16:36] LABS: ALBUMIN 3.9 g/dL (3.5-5.0); ANION GAP 7.1 MEQ/L (5-15); BILIRUBIN,TOTAL 0.6 mg/dL (0.2-1.3); Calcium 8.9 mg/dL (8.4-10.2); Creatinine 1 1.54 mg/dL (0.66-1.25); EST GLOMERULAR FILTRATION RATE 49.4 ML/MIN; Potassium 3.3 mmol/L (3.5-5.1); Total Protein 7.2 g/dL (6.3-8.2)
[2024-05-24] MEDS ORDERED: TYLENOL 325 MG PO PRN (19:27)
[2024-05-24] MEDS ORDERED: TOPIRAMATE ONE (19:55)
[2024-05-24] MEDS: ATARAX 25 MG PO PRN (19:58)
[2024-05-24] MEDS: ZOCOR 20MG PO SCH (19:58)
[2024-05-24] MEDS: Lasix 40 MG PO SCH (19:58)
[2024-05-24] MEDS: Effexor XR 75 MG PO SCH (19:58)
[2024-05-24] MEDS: Zetia 10 MG PO SCH (19:59)
[2024-05-24] MEDS: LIORESAL 10 MG PO SCH (19:59)
[2024-05-24] MEDS ORDERED: COUMADIN ONE (20:19)
[2024-05-24] MEDS: TOPIRAMATE PO SCH (20:24)
[2024-05-24] MEDS: COUMADIN PO SCH (20:24)
--- NOTE | 2024-05-24 21:23 | PCM.HP ---
History of Present Illness - Chief Complaint Chief Complaint: "they told me my potassium was low" Date: 05/24/24 History of Present Illness: is a 68 year old male with history of CAD, DVT/PE, hypertension, and peripheral neuropathy, who had labs drawn for a cardiology visit scheduled for tomorrow, and was noted to have hypokalemia. He notes that 1 month ago, he was at [place] for a planned screening colonoscopy, but it was canceled when preprocedural labs showed potassium of 2.8. He thinks he was given supplemental potassium at that time, but has not had any lab draws since then until today. He has noted increasing cramping in his feet for the past few weeks. He denies any new weakness or numbness, although he has chronic peripheral neuropathy. He denies palpitations, chest pain, dyspnea, or vision changes. His only medication change recently has been some switching between Eliquis and warfarin due to concern that the Eliquis was worsening his peripheral edema. He amlodipine added on about 6 months ago. He has had chronic peripheral edema for years, and has been on Lasix that whole time without requiring potassium supplementation. - Review of Systems All Other Systems: Reviewed and Negative Medications & Allergies Home Medications: Home Medication List Baclofen 20 mg PO BID 05/25/18 [History Confirmed 05/24/24] Ezetimibe 10 mg PO HS 05/25/18 [History Confirmed 05/24/24] Furosemide 40 mg PO BID 05/25/18 [History Confirmed 05/24/24] Warfarin Sodium 5 mg [Coumadin 5 MG] 5 mg PO DAILY 05/25/18 [History Confirmed 05/24/24] Amlodipine Besylate [Norvasc] 2.5 mg PO DAILY 04/25/24 [History Confirmed 05/24/24] Atorvastatin Calcium [Lipitor] 40 mg PO HS 04/25/24 [History Confirmed 05/24/24] Hydroxyzine HCl 25 mg [Atarax 25 mg] 25 mg PO HS PRN 04/25/24 [History Confirmed 05/24/24] Losartan Potassium [Cozaar] 100 mg PO DAILY 04/25/24 [History Confirmed 05/24/24] Topiramate 100 mg [Topamax 100 MG] 50 mg PO HS 04/25/24 [History Confirmed 05/24/24] Venlafaxine HCl ER 75 mg [Effexor XR 75 MG] 75 mg PO BID 04/25/24 [History Confirmed 05/24/24] Aspirin EC 325 mg [Ecotrin 325 MG] 325 mg PO HS 05/24/24 [History Confirmed 05/24/24] Allergies/Adverse Reactions: Allergies Allergy/AdvReac Type Severity Reaction Status Date / Time No Known Drug Allergies Allergy Verified 05/24/24 10:35 - Past Medical History Past Medical History: Yes Neurological History: Peripheral Neuropathy (Possibly secondary to his VTE) ENT History: No Pertinent History Cardiac History: Coronary Artery Disease (Status post multiple stents), Hypertension Respiratory History: Pulmonary Embolism (And DVT), Sleep Apnea (Not on CPAP) Endocrine Medical History: No Pertinent History Musculoskelatal History: Osteoarthritis GI Medical History: No Pertinent History History: No Pertinent History Pyscho-Social History: Anxiety Male Reproductive Disorders: No Pertinent History - Past Surgical History Past Surgical History: Yes Neuro Surgical History: No Pertinent History Cardiac History: Cardiac Stent Respiratory Surgery: No Pertinent History GI Surgical History: No Pertinent History Genitourinary Surgical Hx: No Pertinent History Musculskeletal Surgical Hx: Other Male Surgical History: No Pertinent History Other Surgical History: 5 stents. carpal tunnel release. Knee surgery Significant Family History: no pertinent family hx, other (Father with history of heart and lung disease after long smoking history) - Social History Smoking Status: Never smoker Exposure to second hand smoke: Yes Alcohol: None Drug Use: none - Social Determinants of Health Will the patient participate in the screening: Yes Do you worry about a steady place to live?: No Do you have any problems with any of the following?: No known problems In the past 12 months,have you had to go without utilities?: No Have you or anyone in your house had to go without enough: No Transportation Issues: No Has anyone in your support network made you feel unsafe?: No Does the patient want assistance with any of the above?: No - Physical Exam Vital Signs: Vital Signs - 24 hr Temp Pulse Resp BP BP Pulse Ox 05/24/24 20:00 97.9 F 52 L 19 123/70 96 05/24/24 18:46 97.9 F 52 L 19 123/70 96 05/24/24 17:30 68 112/65 88 L 05/24/24 17:00 55 L 16 113/71 94 L 05/24/24 16:30 56 L 21 108/66 94 L 05/24/24 16:00 57 L 21 116/72 92 L 05/24/24 15:31 58 L 20 118/69 91 L 05/24/24 15:00 60 15 124/74 94 L 05/24/24 14:31 59 L 22 117/49 94 L 05/24/24 14:22 96 05/24/24 14:00 69 23 113/69 96 05/24/24 13:30 66 20 114/59 93 L 05/24/24 13:01 68 16 107/64 93 L 05/24/24 12:31 64 21 120/72 94 L 05/24/24 11:31 61 22 123/72 95 05/24/24 11:00 69 23 124/73 92 L 05/24/24 10:36 96.7 F 77 20 129/80 96 05/24/24 10:32 66 22 129/80 92 L 05/24/24 10:31 96 General Appearance: no apparent distress Neurologic Exam: alert, oriented x 3, cooperative Eye Exam: PERRL/EOMI, eyes nml inspection Ears, Nose, Throat Exam: moist mucous membranes Neck Exam: non-tender, supple, full range of motion Respiratory Exam: normal breath sounds, lungs clear, No respiratory distress Cardiovascular Exam: regular rate/rhythm, normal heart sounds, No murmur, No edema Gastrointestinal/Abdomen Exam: No tenderness, No distention Extremity Exam: normal inspection, normal range of motion Skin Exam: normal color, No rash Results - Labs Lab/Micro Results: Lab Results-Last 24 Hours 05/24/24 05/24/24 05/24/24 Range/Units 10:50 10:50 16:16 WBC 10.0 H (4.23-9.07) x10^3/uL RBC 5.04 (4.63-6.08) x10^6/uL Hgb 14.3 (13.7-17.5) g/dL Hct 42.3 (40.1-51.0) % MCV 83.9 (79.0-92.2) fL MCH 28.4 (25.7-32.2) pg MCHC 33.8 (32.3-36.5) g/dL RDW 15.1 H (11.6-14.4) % Plt Count 203 (163-337) x10^3/uL MPV 9.4 (9.4-12.4) fL Gran % 64.9 (34.0-67.9) % Immature Gran % (Auto) 0.4 (0.001-0.429) % Nucleat RBC Rel Count 0.0 (0.00-0.2) % Eos # (Auto) 0.49 (0.04-0.54) x10^3/uL Immature Gran # (Auto) 0.04 H (0.001-0.031) x10^3u/L Absolute Lymphs (auto) 2.16 (1.32-3.57) x10^3/uL Absolute Monos (auto) 0.77 (0.30-0.82) x10^3/uL Absolute Nucleated RBC 0.00 (0.00-0.012) x10^3u/L Lymphocytes % 21.6 L (21.8-53.1) % Monocytes % 7.7 (5.3-12.2) % Eosinophils % 4.9 (0.8-7.0) % Basophils % 0.5 (0.2-1.2) % Absolute Granulocytes 6.51 H (1.78-5.38) x10^3/uL Basophils # 0.05 (0.01-0.08) x10^3/uL Sodium 138 137 (135-145) mmol/L Potassium 2.5 L* 3.3 L D (3.5-5.1) mmol/L Chloride 100 99 (98-107) mmol/L Carbon Dioxide 27 34 H (22-30) mmol/L Anion Gap 14.0 7.1 (5-15) MEQ/L BUN 29 H 28 H (9-20) mg/dL Creatinine 1.49 H 1.54 H (0.66-1.25) mg/dL Estimated GFR 51.4 49.4 ML/MIN Glucose 164 H 97 (74-106) mg/dL Calcium 8.9 8.9 (8.4-10.2) mg/dL Total Bilirubin 0.80 0.60 (0.2-1.3) mg/dL AST 50 47 (17-59) U/L ALT 47 45 (0-50) U/L Alkaline Phosphatase 122 113 (38-126) U/L Serum Total Protein 7.7 7.2 (6.3-8.2) g/dL Albumin 4.2 3.9 (3.5-5.0) g/dL Assessment/Plan (1) Hypokalemia Current Visit: Yes Status: Acute Assessment & Plan: 68-year-old man with history of VTE, CAD, HTN, peripheral neuropathy, and osteoarthritis, here with hypokalemia. ## Hypokalemia most likely secondary to Lasix usage, although patient notes that he has been on Lasix for years and not required potassium prior to this. It is possible his potassium ran low after doing his bowel prep for the colonoscopy last month, and he never recovered over that time. Most people would take enough p.o. potassium intake to correct in that timeframe, but perhaps he was unable to because of the Lasix. In either case, patient is asymptomatic except for some foot cramping. He was given potassium chloride 40 mEq p.o. and 40 mEq IV in the ED, and his potassium only increased from 2.8 to 3.3. He was also given magnesium 2 g, but his magnesium levels were never checked. Give potassium chloride 40 mEq p.o. x 1 now Check potassium and magnesium levels in the morning Monitor on telemetry Will probably need to be discharged on potassium supplementation, with repeat labs within 1 week with PCP ## CKD stage III patient's baseline creatinine appears to be around 1.3. He is up slightly at 1.5, but that is within lab error. 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 He is currently on warfarin, after he has developed peripheral edema while on Eliquis. However, patient notes that the doctors eventually attributed a different medication to his edema, but never restarted his Eliquis. He follows with an outpatient INR clinic. Check INR Continue home warfarin 5 mg ## CAD with remote history of multiple stents. Note, patient is on full dose aspirin as well as warfarin. However, he said he take his aspirin for pain in the evening, not for secondary prevention of MD. 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 Of note, patient had some recurrent peripheral edema, but it appears to predate when he was started on the amlodipine. Continue amlodipine 2.5 mg, losartan 100 mg ## Peripheral edema chronic, and patient has been on Lasix for few years. No evidence of heart failure, according to the patient. Continue Lasix 40 mg BID Follow-up potassium level as above ## Peripheral neuropathy Continue home Effexor 75 BID, Topamax 50 QHS, and baclofen 20 BID CODE STATUS: Full code Prophylaxis: Warfarin Diet: Regular Dispo: Place in observation, expect patient to discharge to home tomorrow Code(s): E87.6 - HYPOKALEMIA Telemedicine Encounter - Telemedicine Encounter Telemedicine Encounter: "The entirety of this encounter was performed via Telemedicine" This visit was performed using real-time audio and video connection between my location and thepatients locationwith the assistance of a surrogateat the patients location. Written or verbal consent was obtained from the patient/guardian to perform this visit using[facility] technology. Any patient questions regarding the telemedicine interaction were answered.
[2024-05-24] MEDS ORDERED: LIPITOR 40MG PO SCH (22:00)
[2024-05-24] MEDS ORDERED: NON-FORMULARY ITEM (Topiramate 100 Mg*** [Topamax 100 Mg***] 100 MG Tablet) PO SCH (22:00)
[2024-05-25 03:00] VITALS: RESP 16
[2024-05-25 05:17] LABS: Hematocrit 40.8 % (40.1-51.0); Hemoglobin 13.6 g/dL (13.7-17.5); Mean Cell Volume 84.6 fL (79.0-92.2); Mean Corpuscular Hemoglobin 28.2 pg (25.7-32.2); Mean Corpuscular Hgb Concent. 33.3 g/dL (32.3-36.5); Mean Platelet Volume 9.1 fL (9.4-12.4); Platelet Count 192 x10^3/uL (163-337); Red Blood Count 4.82 x10^6/uL (4.63-6.08); Red Cell Distribution Width 15.3 % (11.6-14.4); White Blood Count 9.5 x10^3/uL (4.23-9.07)
--- NOTE | 2024-05-25 05:25 | PCM.DS ---
Discharge Summary Date of Admission: 05/24/24 18:06 Date of Discharge: 05/25/24 Admitting Physician: JERSON HARRIS MD Primary Care Provider: JOSE GUADALUPE MOSQUERA Allergies Allergies No Known Drug Allergies Allergy (Verified 05/24/24 10:35) Hospital Summary - Hospital Course Hospital Course: is a 68 year old male with history of CAD, DVT/PE, hypertension, and peripheral neuropathy, who had labs drawn for a cardiology visit scheduled for tomorrow, and was noted to have hypokalemia. He notes that 1 month ago, he was at [facility] for a planned screening colonoscopy, but it was canceled when preprocedural labs showed potassium of 2.8. He thinks he was given supplemental potassium at that time, but has not had any lab draws since then until today. He has noted increasing cramping in his feet for the past few weeks. He denies any new weakness or numbness, although he has chronic peripheral neuropathy. He denies palpitations, chest pain, dyspnea, or vision changes. His only medication change recently has been some switching between Eliquis and warfarin due to concern that the Eliquis was worsening his peripheral edema. He amlodipine added on about 6 months ago. He has had chronic peripheral edema for years, and has been on Lasix that whole time without requiring potassium supplementation. He was given potassium chloride 40 mEq p.o. and 40 mEq IV in the ED, and his potassium only increased from 2.8 to 3.3. He was also given magnesium 2 g, but his magnesium levels were never checked.Patient received IP oral potassium for additional correction. Hypokalemia resolved Discharge Note New Diagnosis: Hypokalemia New Medications: Potassium Follow Up: PCP Latest Assessment & Plan 68-year-old man with history of VTE, CAD, HTN, peripheral neuropathy, and osteoarthritis, here with hypokalemia. ## Hypokalemia most likely secondary to Lasix usage, although patient notes that he has been on Lasix for years and not required potassium prior to this. It is possible his potassium ran low after doing his bowel prep for the colonoscopy last month, and he never recovered over that time. Most people would take enough p.o. potassium intake to correct in that timeframe, but perhaps he was unable to because of the Lasix. In either case, patient is asymptomatic except for some foot cramping. He was given potassium chloride 40 mEq p.o. and 40 mEq IV in the ED, and his potassium only increased from 2.8 to 3.3. He was also given magnesium 2 g, but his magnesium levels were never checked. Give potassium chloride 40 mEq p.o. x 1 now Check potassium and magnesium levels in the morning Monitor on telemetry Will probably need to be discharged on potassium supplementation, with repeat labs within 1 week with PCP ## CKD stage III patient's baseline creatinine appears to be around 1.3. He is up slightly at 1.5, but that is within lab error. 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 He is currently on warfarin, after he has developed peripheral edema while on Eliquis. However, patient notes that the doctors eventually attributed a different medication to his edema, but never restarted his Eliquis. He follows with an outpatient INR clinic. Check INR Continue home warfarin 5 mg ## CAD with remote history of multiple stents. Note, patient is on full dose aspirin as well as warfarin. However, he said he take his aspirin for pain in the evening, not for secondary prevention of CT. Discussed bleeding risk on full dose aspirin and oral anticoagulation, and suggested using acetaminophen instead for pain control in the evening Continue atorvastatin 40 Patient has follow-up scheduled with his manufacturer representative, and can discuss why patient is not currently on beta-yesenia ## Hypertension blood pressure is currently controlled. Of note, patient had some recurrent peripheral edema, but it appears to predate when he was started on the amlodipine. Continue amlodipine 2.5 mg, losartan 100 mg ## Peripheral edema chronic, and patient has been on Lasix for few years. No evidence of heart failure, according to the patient. Continue Lasix 40 mg BID Follow-up potassium level as above ## Peripheral neuropathy Continue home Effexor 75 BID, Topamax 50 QHS, and baclofen 20 BID I spent 35 minutes [id number] with the patient on the day of discharge per forming discharge exam, discussing hospital stay and discharge instructions with patient and caregivers, preparation of discharge records, prescriptions & referral forms and addressing any questions/concerns the patient had as documented above. - Vitals & Intake/Output Vital Signs: Vital Signs Temperature 97.7 F 05/25/24 02:59 Pulse Rate 57 L 05/25/24 02:59 Respiratory Rate 16 05/25/24 04:00 Blood Pressure 136/76 05/25/24 02:59 O2 Sat by Pulse Oximetry 94 L 05/25/24 02:59 Intake & Output: Intake & Output 05/22/24 05/23/24 05/24/24 05/25/24 11:59 11:59 11:59 11:59 Intake Total 240 Balance 240 Weight 119 kg 121 kg - Lab Result Diagrams: 05/25/24 05:10 05/25/24 12:24 Lab Results-Last 24 Hrs: Lab Results-Last 24 Hours 05/24/24 05/24/24 05/24/24 Range/Units 10:50 10:50 16:16 WBC 10.0 H (4.23-9.07) x10^3/uL RBC 5.04 (4.63-6.08) x10^6/uL Hgb 14.3 (13.7-17.5) g/dL Hct 42.3 (40.1-51.0) % MCV 83.9 (79.0-92.2) fL MCH 28.4 (25.7-32.2) pg MCHC 33.8 (32.3-36.5) g/dL RDW 15.1 H (11.6-14.4) % Plt Count 203 (163-337) x10^3/uL MPV 9.4 (9.4-12.4) fL Gran % 64.9 (34.0-67.9) % Immature Gran % (Auto) 0.4 (0.001-0.429) % Nucleat RBC Rel Count 0.0 (0.00-0.2) % Eos # (Auto) 0.49 (0.04-0.54) x10^3/uL Immature Gran # (Auto) 0.04 H (0.001-0.031) x10^3u/L Absolute Lymphs (auto) 2.16 (1.32-3.57) x10^3/uL Absolute Monos (auto) 0.77 (0.30-0.82) x10^3/uL Absolute Nucleated RBC 0.00 (0.00-0.012) x10^3u/L Lymphocytes % 21.6 L (21.8-53.1) % Monocytes % 7.7 (5.3-12.2) % Eosinophils % 4.9 (0.8-7.0) % Basophils % 0.5 (0.2-1.2) % Absolute Granulocytes 6.51 H (1.78-5.38) x10^3/uL Basophils # 0.05 (0.01-0.08) x10^3/uL Sodium 138 137 (135-145) mmol/L Potassium 2.5 L* 3.3 L D (3.5-5.1) mmol/L Chloride 100 99 (98-107) mmol/L Carbon Dioxide 27 34 H (22-30) mmol/L Anion Gap 14.0 7.1 (5-15) MEQ/L BUN 29 H 28 H (9-20) mg/dL Creatinine 1.49 H 1.54 H (0.66-1.25) mg/dL Estimated GFR 51.4 49.4 ML/MIN Glucose 164 H 97 (74-106) mg/dL Calcium 8.9 8.9 (8.4-10.2) mg/dL Total Bilirubin 0.80 0.60 (0.2-1.3) mg/dL AST 50 47 (17-59) U/L ALT 47 45 (0-50) U/L Alkaline Phosphatase 122 113 (38-126) U/L Serum Total Protein 7.7 7.2 (6.3-8.2) g/dL Albumin 4.2 3.9 (3.5-5.0) g/dL Discharge Exam General Appearance: no apparent distress Neurologic Exam: alert, oriented x 3, cooperative Eye Exam: PERRL Ears, Nose, Throat Exam: normal ENT inspection Neck Exam: normal inspection Respiratory Exam: normal breath sounds, lungs clear Cardiovascular Exam: regular rate/rhythm, normal heart sounds Gastrointestinal/Abdomen Exam: soft, normal bowel sounds Male Genitalia Exam: deferred Rectal Exam: deferred Back Exam: normal inspection Extremity Exam: swelling (BLE +1) Skin Exam: normal color Final Diagnosis/Problem List - Final Discharge Diagnosis/Problem (1) Hypokalemia Current Visit: Yes Status: Resolved Code(s): E87.6 - HYPOKALEMIA (2) CKD (chronic kidney disease) stage 3, GFR 30-59 ml/min Current Visit: Yes Status: Chronic Code(s): N18.30 - CHRONIC KIDNEY DISEASE, STAGE 3 UNSPECIFIED (3) Recurrent deep vein thrombosis Current Visit: Yes Status: Chronic Code(s): I82.409 - ACUTE EMBOLISM AND THOMBOS UNSP DEEP VN UNSP LOWER EXTREMITY (4) CAD (coronary artery disease) Current Visit: Yes Status: Chronic Code(s): I25.10 - ATHSCL HEART DISEASE OF [place] CORONARY ARTERY W/O ANG PCTRS (5) HTN (hypertension) Current Visit: Yes Status: Chronic Code(s): I10 - ESSENTIAL (PRIMARY) HYPERTENSION (6) Peripheral edema Current Visit: Yes Status: Chronic Code(s): R60.0 - LOCALIZED EDEMA (7) Peripheral neuropathy Current Visit: Yes Status: Chronic Code(s): G62.9 - POLYNEUROPATHY, UNSPECIFIED - Discharge Disposition: Home, Self-Care Condition: Stable Prescriptions: New Potassium Chloride See Rx Instructions .ROUTE .COMPLEX 30 Days #37 tablet Continue Ezetimibe 10 mg PO HS Warfarin Sodium 5 mg [Coumadin] 5 mg PO DAILY Furosemide 40 mg PO BID Baclofen 20 mg PO BID Hydroxyzine HCl 25 mg [Atarax 25 mg] 25 mg PO HS PRN PRN Reason: Anxiety Atorvastatin Calcium [Lipitor] 40 mg PO HS Venlafaxine HCl ER 75 mg [Effexor XR 75 MG] 75 mg PO BID Amlodipine Besylate [Norvasc] 2.5 mg PO DAILY Losartan Potassium [Cozaar] 100 mg PO DAILY Topiramate 100 mg [Topamax 100 MG] 50 mg PO HS Aspirin EC 325 mg [Ecotrin 325 MG] 325 mg PO HS Follow up with: CITLALY SARAVIA [CONSULTING PHYSICIAN] - 05/27/24 1:30 pm DIAN MOSQUERA PA [Primary Care Provider] - 06/01/24 9:15 am
[2024-05-25 05:41] LABS: ANION GAP 9.5 MEQ/L (5-15); Calcium 8.7 mg/dL (8.4-10.2); Creatinine 1 1.49 mg/dL (0.66-1.25); EST GLOMERULAR FILTRATION RATE 51.4 ML/MIN; MAGNESIUM 2.6 mg/dL (1.6-2.3)
[2024-05-25] MEDS ORDERED: Sodium Chloride 0.9% 250 ML 250 ML IV ONE (06:07)
[2024-05-25] MEDS: POTASSIUM CHLORIDE 20 mEq IN WATER 100ML 20 MEQ/100 ML BAG IV SCH (06:17)
[2024-05-25] MEDS: Klor Con PO ONE ×2 (06:17→13:04)
[2024-05-25] MEDS ORDERED: ATARAX 25 MG PO PRN (07:14)
[2024-05-25] MEDS: Lasix 40 MG PO SCH (09:24)
[2024-05-25] MEDS: Cozaar 50 MG PO SCH (09:24)
[2024-05-25] MEDS: NORVASC 5 MG PO SCH (09:24)
[2024-05-25] MEDS ORDERED: NON-FORMULARY ITEM (Losartan Potassium [Cozaar] 100 MG Tablet) PO SCH (10:00)
[2024-05-25] MEDS ORDERED: NON-FORMULARY ITEM (Amlodipine Besylate [Norvasc] 2.5 MG Tablet) PO SCH (10:00)
[2024-05-25] MEDS ORDERED: COUMADIN PO SCH (10:00)
[2024-05-25 12:43] LABS: INR 2.08 (0.8-3.0); PROTIME 21.6 SECONDS (9.4-12.5)
[2024-05-25 13:24] VITALS: BP 125/63; PULSE 85; TEMP 96.9; O2SAT 93
== END 2024-05-25 15:52 | disposition home or self-care (01) ==
LOC: ED 10:23 → MED SURG 18:06
PROVIDERS: ADMIT Internal Medicine; ATTEND Internal Medicine
DX: E87.6 Hypokalemia (principal); I12.9 Hypertensive chronic kidney disease with stage 1 through stage 4 chronic kidney disease, or unspecified chronic kidney disease; N18.30 Chronic kidney disease, stage 3 unspecified; I25.10 Atherosclerotic heart disease of native coronary artery without angina pectoris; R60.0 Localized edema; I82.409 Acute embolism and thrombosis of unspecified deep veins of unspecified lower extremity; G62.9 Polyneuropathy, unspecified; Z79.899 Other long term (current) drug therapy; Z86.718 Personal history of other venous thrombosis and embolism; Z79.01 Long term (current) use of anticoagulants
CPT/HCPCS: 36415; 80048; 80053; 83735; 84132; 85025; 85027; 85610; 94003; 94660; 96374; 96375; 96376; 99285; Q3014; 93268; J3475; J3480; A9270-GY; G0378

== ENCOUNTER 2024-08-23 09:31 | Emergency (ER) | payer OTHER ==
[2024-08-23 09:54] VITALS: TEMP 99
--- NOTE | 2024-08-23 10:06 | ERPHSYRPT ---
- History of Present Illness Time Seen by Provider: 08/23/24 10:01 Exam Limitations: no limitations Patient Subjective Stated Complaint: Head injury Triage Nursing Assessment: Patient brougth back to ED and taken straight to CT scan. Patient sent down to ED per QC due to hitting head last night and constant vomiting. Patient A+O X3. Patient's skin flushed, warm and dry. Patient states around 1130 last night he tripped while going to the bathroom and hit his head. patient unsure if he had loc. Patient states around 0330 he started projectile vomiting and hasn't stopped. Patient states he has vomitted approx 30 times since then. Patient complains of headache 09/22 and is light sensitive. Physician History: 68-year-old male presents to our ED from [facility] for evaluation of nausea and vomiting which started early this morning at approximately 3:30 AM. Patient reports that he fell and hit his head last night at approximately 11 PM. P atient is not sure if there was loss of consciousness. The fall was reported as mechanical and not associated with any neuro or cardiovascular symptomology. No associated chest pain or shortness of breath. No numbness tingling or weakness. Patient is on a blood thinner for history of blood clots. Patient currently complains of a global headache. Mild photophobia. Patient voices no other complaints or concerns at this time. Portions of this note were created with voice recognition technology. There may be grammatical, spelling, punctuation or sound alike errors Timing/Duration: yesterday Severity: moderate Modifying Factors: Improves With: nothing Allergies/Adverse Reactions: No Known Drug Allergies Allergy (Verified 08/23/24 09:44) Home Medications: Baclofen 20 mg PO BID 05/25/18 [History] Ezetimibe 10 mg PO HS 05/25/18 [History] Furosemide 40 mg PO BID 05/25/18 [History] Warfarin Sodium 5 mg [Coumadin] 5 mg PO DAILY 05/25/18 [History] Amlodipine Besylate [Norvasc] 2.5 mg PO DAILY 04/25/24 [History] Atorvastatin Calcium [Lipitor] 40 mg PO HS 04/25/24 [History] Hydroxyzine HCl 25 mg [Atarax 25 mg] 25 mg PO HS PRN 04/25/24 [History] Losartan Potassium [Cozaar] 100 mg PO DAILY 04/25/24 [History] Topiramate 100 mg [Topamax 100 MG] 50 mg PO HS 04/25/24 [History] Venlafaxine HCl ER 75 mg [Effexor XR 75 MG] 75 mg PO BID 04/25/24 [History] Aspirin EC 325 mg [Ecotrin 325 MG] 325 mg PO HS 05/24/24 [History] Hx Tetanus, Diphtheria Vaccination/Date Given: No Hx Influenza Vaccination/Date Given: No Hx Pneumococcal Vaccination/Date Given: No Immunizations Up to Date: Yes Travel Risk - International Travel Have you traveled outside of the country in past 3 weeks: No - Emerging Infectious Disease Are you exhibiting symptoms associated with any current EIDs: No - Review of Systems Constitutional: No Symptoms, No Fever, No Chills Eyes: No Symptoms Ears, Nose, & Throat: No Symptoms Respiratory: No Symptoms, No Cough, No Dyspnea Cardiac: No Symptoms, No Chest Pain, No Edema, No Syncope Abdominal/Gastrointestinal: No Symptoms, No Abdominal Pain, No Nausea, No Vomiting, No Diarrhea Genitourinary Symptoms: No Symptoms, No Dysuria Musculoskeletal: No Symptoms, No Back Pain, No Neck Pain Skin: No Symptoms, No Rash Neurological: No Symptoms, No Dizziness, No Focal Weakness, No Sensory Changes Psychological: No Symptoms Endocrine: No Symptoms Hematologic/Lymphatic: No Symptoms Immunological/Allergic: No Symptoms All Other Systems: Reviewed and Negative - Past Medical History Pertinent Past Medical History: Yes Neurological History: Peripheral Neuropathy ENT History: No Pertinent History Cardiac History: Coronary Artery Disease, Deep Vein Thrombosis, Hypertension Respiratory History: Sleep Apnea Endocrine Medical History: No Pertinent History Musculoskeletal History: Osteoarthritis GI Medical History: No Pertinent History History: No Pertinent History Psycho-Social History: No Pertinent History Male Reproductive Disorders: No Pertinent History Other Medical History: BLOOD CLOTS MAY HAVE CAUSED THE NEUROPATHY, HAS BEEN SEEN BY NEUROLOGISTS. PT SEES DR. PEREZ. A FEW STINTS IN THE HEART - Past Surgical History Past Surgical History: Yes Neuro Surgical History: No Pertinent History Cardiac: Cardiac Stent Respiratory: No Pertinent History Gastrointestinal: No Pertinent History Genitourinary: No Pertinent History Musculoskeletal: Other Male Surgical History: No Pertinent History Other Surgical History: 5 stents. carpal tunnel release. Knee surgery Significant Family History: no pertinent family hx, other (Father with history of heart and lung disease after long smoking history) - Social History Smoking Status: Never smoker Exposure to second hand smoke: No Drug Use: none - Social Determinants of Health Will the patient participate in the screening: Yes Do you worry about a steady place to live?: No Do you have any problems with any of the following?: No known problems In the past 12 months,have you had to go without utilities?: No Transportation Issues: No Has anyone in your support network made you feel unsafe?: No Have you or anyone in your house had to go w/o enough food: No - Nursing Vital Signs Nursing Vital Signs: Initial Vital Signs Temperature 99.0 F 08/23/24 09:45 Pulse Rate 113 H 08/23/24 09:45 Respiratory Rate 20 08/23/24 09:45 Blood Pressure 147/97 08/23/24 09:45 O2 Sat by Pulse Oximetry 96 08/23/24 09:45 Pain Scale Pain Intensity 5 - Physical Exam General Appearance: no apparent distress, alert Eye Exam: PERRL/EOMI, eyes nml inspection Ears, Nose, Throat Exam: normal ENT inspection, TMs normal, pharynx normal, moist mucous membranes Neck Exam: normal inspection, non-tender, supple, full range of motion Respiratory Exam: normal breath sounds, lungs clear, airway intact, No respiratory distress Cardiovascular Exam: regular rate/rhythm, normal heart sounds, normal peripheral pulses Gastrointestinal/Abdomen Exam: soft, normal bowel sounds, No tenderness, No mass Back Exam: normal inspection, normal range of motion, No CVA tenderness, No vertebral tenderness Extremity Exam: normal inspection, normal range of motion, pelvis stable Neurologic Exam: alert, oriented x 3, cooperative, normal mood/affect, nml cerebellar function, nml station & gait, sensation nml, No motor deficits Skin Exam: normal color, warm, dry, No rash Lymphatic Exam: No adenopathy SpO2 Interpretation: normal SpO2: 96 O2 Delivery: Room Air - Course Nursing assessment & vital signs reviewed: Yes EKG Interpreted by Me: RATE ([id number]), Sinus Tach, NORMAL AXIS, NORMAL INTERVALS, NORMAL QRS - CT Exams Head CT Interpretation: Tele-radiologist Report (Normal CT head without contrast) Ordered Tests: Active Orders 24 hr Category Date Time Status Sugar Coating Hand STAT Care 08/23/24 10:07 Completed EKG-ER Only STAT Care 08/23/24 10:06 Completed IV Insertion STAT Care 08/23/24 10:06 Completed Pulse Oximetry (ED) STAT Care 08/23/24 10:06 Completed HEAD WITHOUT CONTRAST [CT] Stat Exams 08/23/24 09:35 Completed CBC W DIFF Stat Lab 08/23/24 10:06 Completed CMP Stat Lab 08/23/24 10:06 Completed PROTIME WITH INR Stat Lab 08/23/24 14:28 Completed TROPONIN Q4H Lab 08/23/24 10:15 Completed TROPONIN Q4H Lab 08/23/24 14:28 Completed Medication Summary Discontinued Medications Generic Name Dose Route Start Last Admin Trade Name Freq PRN Reason Stop Dose Admin Sodium Chloride 1,000 mls @ 999 mls/hr 08/23/24 11:59 08/23/24 13:16 Sodium Chloride 0.9% 1000 Ml IV 08/23/24 12:59 Infused .Q1H1M STA Infusion Sodium Chloride Confirm 08/23/24 12:07 Sodium Chloride 0.9% 1000 Ml Administered 08/23/24 12:08 Dose 1,000 mls @ ud .ROUTE .STK-MED ONE Ketorolac Tromethamine 30 mg 08/23/24 11:59 08/23/24 12:08 Ketorolac Tromethamine 30 Mg/Ml Inj IV 08/23/24 12:00 30 mg STAT ONE Administration Ketorolac Tromethamine Confirm 08/23/24 12:06 Ketorolac Tromethamine 30 Mg/Ml Inj Administered 08/23/24 12:07 Dose 30 mg .ROUTE .STK-MED ONE Prochlorperazine Edisylate 10 mg 08/23/24 11:59 08/23/24 12:08 Prochlorperazine Edisylate 10 Mg/2 Ml Vial IV 08/23/24 12:00 10 mg STAT ONE Administration Prochlorperazine Edisylate Confirm 08/23/24 12:07 Prochlorperazine Edisylate 10 Mg/2 Ml Vial Administered 08/23/24 12:08 Dose 10 mg .ROUTE .STK-MED ONE Lab/Rad Data: Laboratory Result Diagrams 08/23/24 10:06 08/23/24 10:06 Laboratory Results 08/23/24 08/23/24 08/23/24 Range/Units 14:28 14:28 10:15 WBC (4.23-9.07) x10^3/uL RBC (4.63-6.08) x10^6/uL Hgb (13.7-17.5) g/dL Hct (40.1-51.0) % MCV (79.0-92.2) fL MCH (25.7-32.2) pg MCHC (32.3-36.5) g/dL RDW (11.6-14.4) % Plt Count (163-337) x10^3/uL MPV (9.4-12.4) fL Gran % (34.0-67.9) % Immature Gran % (Auto) (0.001-0.429) % Nucleat RBC Rel Count (0.00-0.2) % Eos # (Auto) (0.04-0.54) x10^3/uL Immature Gran # (Auto) (0.001-0.031) x10^3u/L Absolute Lymphs (auto) (1.32-3.57) x10^3/uL Absolute Monos (auto) (0.30-0.82) x10^3/uL Absolute Nucleated RBC (0.00-0.012) x10^3u/L Lymphocytes % (21.8-53.1) % Monocytes % (5.3-12.2) % Eosinophils % (0.8-7.0) % Basophils % (0.2-1.2) % Absolute Granulocytes (1.78-5.38) x10^3/uL Basophils # (0.01-0.08) x10^3/uL PT 22.2 H (9.4-12.5) SECONDS INR 2.14 (0.8-3.0) Sodium (135-145) mmol/L Potassium (3.5-5.1) mmol/L Chloride (98-107) mmol/L Carbon Dioxide (22-30) mmol/L Anion Gap (5-15) MEQ/L BUN (9-20) mg/dL Creatinine (0.66-1.25) mg/dL Estimated GFR ML/MIN Glucose (74-106) mg/dL Calcium (8.4-10.2) mg/dL Total Bilirubin (0.2-1.3) mg/dL AST (17-59) U/L ALT (0-50) U/L Alkaline Phosphatase (38-126) U/L Troponin I < 0.012 < 0.012 (0.000-0.033) ng/mL Serum Total Protein (6.3-8.2) g/dL Albumin (3.5-5.0) g/dL Influenza Type A Ag (NEGATIVE) Influenza Type B Ag (NEGATIVE) RSV (PCR) (NEGATIVE) SARS-CoV-2 (PCR) (NEGATIVE) 08/23/24 08/23/24 08/23/24 Range/Units 10:06 10:06 10:06 WBC 12.5 H (4.23-9.07) x10^3/uL RBC 5.54 (4.63-6.08) x10^6/uL Hgb 15.6 (13.7-17.5) g/dL Hct 46.1 (40.1-51.0) % MCV 83.2 (79.0-92.2) fL MCH 28.2 (25.7-32.2) pg MCHC 33.8 (32.3-36.5) g/dL RDW 15.9 H (11.6-14.4) % Plt Count 208 (163-337) x10^3/uL MPV 9.0 L (9.4-12.4) fL Gran % 88.3 H (34.0-67.9) % Immature Gran % (Auto) 0.4 (0.001-0.429) % Nucleat RBC Rel Count 0.0 (0.00-0.2) % Eos # (Auto) 0.04 (0.04-0.54) x10^3/uL Immature Gran # (Auto) 0.05 H (0.001-0.031) x10^3u/L Absolute Lymphs (auto) 0.69 L (1.32-3.57) x10^3/uL Absolute Monos (auto) 0.67 (0.30-0.82) x10^3/uL Absolute Nucleated RBC 0.00 (0.00-0.012) x10^3u/L Lymphocytes % 5.5 L (21.8-53.1) % Monocytes % 5.3 (5.3-12.2) % Eosinophils % 0.3 L (0.8-7.0) % Basophils % 0.2 (0.2-1.2) % Absolute Granulocytes 11.05 H (1.78-5.38) x10^3/uL Basophils # 0.03 (0.01-0.08) x10^3/uL PT (9.4-12.5) SECONDS INR (0.8-3.0) Sodium 143 (135-145) mmol/L Potassium 4.3 (3.5-5.1) mmol/L Chloride 105 (98-107) mmol/L Carbon Dioxide 24 (22-30) mmol/L Anion Gap 18.1 H (5-15) MEQ/L BUN 28 H (9-20) mg/dL Creatinine 1.20 (0.66-1.25) mg/dL Estimated GFR 66.7 ML/MIN Glucose 163 H (74-106) mg/dL Calcium 9.2 (8.4-10.2) mg/dL Total Bilirubin 1.30 (0.2-1.3) mg/dL AST 56 (17-59) U/L ALT 57 H (0-50) U/L Alkaline Phosphatase 106 (38-126) U/L Troponin I (0.000-0.033) ng/mL Serum Total Protein 7.5 (6.3-8.2) g/dL Albumin 4.5 (3.5-5.0) g/dL Influenza Type A Ag NEGATIVE (NEGATIVE) Influenza Type B Ag NEGATIVE (NEGATIVE) RSV (PCR) NEGATIVE (NEGATIVE) SARS-CoV-2 (PCR) NEGATIVE (NEGATIVE) - Progress Progress: improved Progress Note: 68-year-old male presents to our ED with a headache nausea and vomiting after hitting his head. Neurologic exam within normal limits. No focal or lateralizing symptoms. CT head negative for acute intracranial pathology. Patient received Toradol and Compazine for headache. Nausea and vomiting re solved. Patient tolerating p.o. well. Patient states he feels much better. Patient ambulated throughout our ED with a normal gait. No complications. No indication for further workup at this time. Will discharge home. Patient agrees to follow-up with his primary care doctor within 48 hours for reevaluation. Patient's nausea and vomiting was likely secondary to his fall and a head injury. Patient diagnosed with concussion. Concussion protocol discussed. Patient's is at the bedside. They voiced no other complaints or concerns at this time. Portions of this note were created with voice recognition technology. There may be grammatical, spelling, punctuation or sound alike errors Complexity of problem addressed is moderate acute complicated. No critical care time. Complexity of data reviewed analyzes moderate. Test ordered test reviewed results analyzed and correlated clinically with history and physical exam. Risk of complication and or risk of morbidity/mortality of patient management is low. Vital stable. Time spent to discharge patient is approximately 15 minutes. Plan of care established for shared decision making. No social determinants of health present to impede follow-up. Portions of this note were created with voice recognition technology. There may be grammatical, spelling, punctuation or sound alike errors 08/23/24 14:18 Counseled pt/family regarding: diagnosis, need for follow-up, rad results - Departure Departure Disposition: Home Clinical Impression: Fall, Nausea and vomiting, Concussion, Headache Condition: Stable Critical Care Time: No Referrals: DIAN MOSQUERA PA [Primary Care Provider] - Follow up/PCP as directed Instructions: Concussion in adults, Preventing falls - ED discharge instructions Additional Instructions: Discharge/Care Plan GEORGI HALEY was seen on 08/23/24 in the Emergency Room. The patient was counseled regarding Diagnosis,Lab results, Imaging studies, need for follow up and when to return to the Emergency Room. Prescriptions given: Discharge Note I have spoken with the patient and/or caregivers. I have explained the patient's condition, diagnosis and treatment plan based on the information available to me at this time. I have answered the patient's and/or caregiver's questions and addressed any concerns. The patient and/or caregivers have as good understanding of the patient's diagnosis, condition and treatment plan as can be expected at this point. The vital signs have been stable. The patient's condition is stable and appropriate for discharge from the emergency department. The patient will pursue further outpatient evaluation with the primary care physician or other designated or consulting physician as outlined in the discharge instructions. The patient and/or caregivers are agreeable to this plan of care and follow-up instructions have been explained in detail. The patient and/or caregivers have received these instruction. The patient/and or caregivers are aware that any significant change in condition or worsening of symptoms should prompt an immediate return to this or the closest emergency department or call 911.
[2024-08-23 10:13] LABS: Absolute Neutrophil Ct (ANC) 11.05 x10^3/uL (1.78-5.38); BASOPHIL % 0.2 % (0.2-1.2); Basophil (Absolute #) 0.03 x10^3/uL (0.01-0.08); Eosinophil % 0.3 % (0.8-7.0); Eosinophil (Absolute #) 0.04 x10^3/uL (0.04-0.54); Hematocrit 46.1 % (40.1-51.0); Hemoglobin 15.6 g/dL (13.7-17.5); IMMATURE GRAN # 0.05 x10^3u/L (0.001-0.031); IMMATURE GRAN % 0.4 % (0.001-0.429); Lymphocyte (Absolute #) 0.69 x10^3/uL (1.32-3.57); Lymphocytes % 5.5 % (21.8-53.1); Mean Cell Volume 83.2 fL (79.0-92.2); Mean Corpuscular Hemoglobin 28.2 pg (25.7-32.2); Mean Corpuscular Hgb Concent. 33.8 g/dL (32.3-36.5); Monocyte (Absolute #) 0.67 x10^3/uL (0.30-0.82); Monocytes % 5.3 % (5.3-12.2); Neutrophil % 88.3 % (34.0-67.9); Platelet Count 208 x10^3/uL (163-337); Red Blood Count 5.54 x10^6/uL (4.63-6.08); Red Cell Distribution Width 15.9 % (11.6-14.4); White Blood Count 12.5 x10^3/uL (4.23-9.07)
[2024-08-23 10:25] LABS: ALBUMIN 4.5 g/dL (3.5-5.0); ANION GAP 18.1 MEQ/L (5-15); BILIRUBIN,TOTAL 1.3 mg/dL (0.2-1.3); Calcium 9.2 mg/dL (8.4-10.2); Creatinine 1 1.2 mg/dL (0.66-1.25); EST GLOMERULAR FILTRATION RATE 66.7 ML/MIN; Potassium 4.3 mmol/L (3.5-5.1); Total Protein 7.5 g/dL (6.3-8.2)
--- NOTE | 2024-08-23 10:26 | XRAY ---
Indication: Status post fall. Blood thinners. Multiple contiguous axial images obtained through the head without contrast. Comparison: None Normal appearing brain parenchyma, ventricles, and bony calvarium for patient's age. Visualized paranasal sinuses and mastoid air cells are clear. Impression: Normal CT head without contrast exam.
[2024-08-23 11:15] LABS: INFLUENZA A NEGATIVE (NEGATIVE); INFLUENZA B NEGATIVE (NEGATIVE); RESPIRATORY SYNCTIAL VIRUS NEGATIVE (NEGATIVE); SARS-CoV-2 Xpert Express NEGATIVE (NEGATIVE)
[2024-08-23] MEDS ORDERED: TORAdol 30 mg Injection ONE (12:06)
[2024-08-23] MEDS ORDERED: Sodium Chloride 0.9% 1000 ML 1,000 ML ONE (12:07)
[2024-08-23] MEDS ORDERED: Compazine 10 MG/2 ML ONE (12:07)
[2024-08-23] MEDS: TORAdol 30 mg Injection IV ONE (12:08)
[2024-08-23] MEDS: Compazine 10 MG/2 ML IV ONE (12:08)
[2024-08-23] MEDS: Sodium Chloride 0.9% 1000 ML 1,000 ML IV STA (12:09)
[2024-08-23 14:05] VITALS: BP 122/75; PULSE 103; RESP 24; O2SAT 96
[2024-08-23 14:45] LABS: INR 2.14 (0.8-3.0); PROTIME 22.2 SECONDS (9.4-12.5)
== END 2024-08-23 14:41 | disposition home or self-care (01) ==
LOC: ED 09:31
DX: S06.0XAA Concussion with loss of consciousness status unknown, initial encounter (principal); W18.30XA Fall on same level, unspecified, initial encounter; R11.2 Nausea with vomiting, unspecified; R51.9 Headache, unspecified; I10 Essential (primary) hypertension; Z79.01 Long term (current) use of anticoagulants; Z79.899 Other long term (current) drug therapy
CPT/HCPCS: 0241U; 36415; 70450; 80053; 84484; 85025; 85610; 93005; 93041; 94760; 96361; 96374; 96375; 99285; J1885

== ENCOUNTER 2024-09-06 11:41 | Emergency (ER) | payer OTHER ==
[2024-09-06 12:09] VITALS: TEMP 97.1
--- NOTE | 2024-09-06 13:03 | ERPHSYRPT ---
- History of Present Illness Time Seen by Provider: 09/06/24 12:58 Source: patient Exam Limitations: no limitations Patient Subjective Stated Complaint: "I was on vacation and we were walking around going to shops and stuff when my foot started hurting. I don't know if it's neuropathy or a blood clot or what but I can barely walk on it now". Triage Nursing Assessment: Pt presents to ER with complaints of Left foot pain x 2 days. Was on vacation with family and while walking around noticed his left foot started to hurt. Stated the pain has increasingly been worsening. Pt did communite in an approx 6 [address] car ride home yesterday. Pt has history of blood clots and neuropathy. Pt has limited ROM. Tender upon exam. Pt is alert and oriented x 3. Skin is pink, warm, and dry. Respirations are easy. Rates pain 9/10 scale. Physician History: 68-year-old male presents to our ED for evaluation of pain to his left foot. Pain rated 9 out of 10. Patient agreed to Tylenol only at this time. Patient states he went on vacation. He did a lot of walking. Upon arrival from his vacation patient observed that his left foot became very tender. Patient complains of pain to the dorsal aspect of his left foot. Symptoms have been ongoing for approximately 2 days. No traumatic event. No falls no injury. Patient has a history of DVT. Patient currently on Coumadin. Patient states he has been taking Coumadin as scheduled. Timing/Duration: today Severity: moderate Allergies/Adverse Reactions: No Known Drug Allergies Allergy (Verified 09/06/24 12:09) Home Medications: Baclofen 20 mg PO BID 05/25/18 [History] Ezetimibe 10 mg PO HS 05/25/18 [History] Furosemide 40 mg PO BID 05/25/18 [History] Warfarin Sodium 5 mg [Coumadin] 5 mg PO DAILY 05/25/18 [History] Atorvastatin Calcium [Lipitor] 40 mg PO HS 04/25/24 [History] Hydroxyzine HCl 25 mg [Atarax 25 mg] 25 mg PO HS PRN 04/25/24 [History] Losartan Potassium [Cozaar] 100 mg PO DAILY 04/25/24 [History] Topiramate 100 mg [Topamax 100 MG] 50 mg PO HS 04/25/24 [History] Venlafaxine HCl ER 75 mg [Effexor XR 75 MG] 75 mg PO BID 04/25/24 [H istory] Hydrochlorothiazide 25 mg [hydroDIURIL 25 MG] 25 mg PO DAILY 09/06/24 [History] Potassium Chloride 2 tab PO BID 09/06/24 [History] Hx Tetanus, Diphtheria Vaccination/Date Given: Yes Hx Influenza Vaccination/Date Given: No Hx Pneumococcal Vaccination/Date Given: Yes Immunizations Up to Date: No Travel Risk - International Travel Have you traveled outside of the country in past 3 weeks: No - Emerging Infectious Disease Are you exhibiting symptoms associated with any current EIDs: No - Review of Systems Constitutional: No Symptoms, No Fever, No Chills Eyes: No Symptoms Ears, Nose, & Throat: No Symptoms Respiratory: No Symptoms, No Cough, No Dyspnea Cardiac: No Symptoms, No Chest Pain, No Edema, No Syncope Abdominal/Gastrointestinal: No Symptoms, No Abdominal Pain, No Nausea, No Vomiting, No Diarrhea Genitourinary Symptoms: No Symptoms, No Dysuria Musculoskeletal: No Symptoms, No Back Pain, No Neck Pain Skin: No Symptoms, No Rash Neurological: No Symptoms, No Dizziness, No Focal Weakness, No Sensory Changes Psychological: No Symptoms Endocrine: No Symptoms Hematologic/Lymphatic: No Symptoms Immunological/Allergic: No Symptoms All Other Systems: Reviewed and Negative - Past Medical History Pertinent Past Medical History: Yes Neurological History: Peripheral Neuropathy ENT History: No Pertinent History Cardiac History: Coronary Artery Disease, Deep Vein Thrombosis, Hypertension Respiratory History: Sleep Apnea Endocrine Medical History: No Pertinent History Musculoskeletal History: Osteoarthritis GI Medical History: No Pertinent History History: No Pertinent History Psycho-Social History: No Pertinent History Male Reproductive Disorders: No Pertinent History Other Medical History: BLOOD CLOTS MAY HAVE CAUSED THE NEUROPATHY, HAS BEEN SEEN BY NEUROLOGISTS. PT SEES DR. PEREZ. A FEW STINTS IN THE HEART - Past Surgical History Past Surgical History: Yes Neuro Surgical History: No Pertinent History Cardiac: Cardiac Stent Respiratory: No Pertinent History Gastrointestinal: No Pertinent History Genitourinary: No Pertinent History Musculoskeletal: Other Male Surgical History: No Pertinent History Other Surgical History: 5 stents. carpal tunnel release. Knee surgery Significant Family History: no pertinent family hx, other (Father with history of heart and lung disease after long smoking history) - Social History Smoking Status: Never smoker Exposure to second hand smoke: No Drug Use: none - Social Determinants of Health Will the patient participate in the screening: Yes Do you worry about a steady place to live?: No Do you have any problems with any of the following?: No known problems In the past 12 months,have you had to go without utilities?: No Transportation Issues: No Has anyone in your support network made you feel unsafe?: No Have you or anyone in your house had to go w/o enough food: No - Nursing Vital Signs Nursing Vital Signs: Initial Vital Signs Temperature 97.1 F 09/06/24 12:03 Pulse Rate 97 H 09/06/24 12:03 Respiratory Rate 16 09/06/24 12:03 Blood Pressure 147/93 09/06/24 12:03 O2 Sat by Pulse Oximetry 95 09/06/24 12:03 Pain Scale Pain Intensity 5 - Physical Exam General Appearance: no apparent distress, alert Eye Exam: PERRL/EOMI, eyes nml inspection Ears, Nose, Throat Exam: normal ENT inspection, moist mucous membranes Neck Exam: normal inspection, full range of motion Respiratory Exam: normal breath sounds, lungs clear, airway intact, No respiratory distress Cardiovascular Exam: regular rate/rhythm, normal heart sounds, normal peripheral pulses Gastrointestinal/Abdomen Exam: soft, normal bowel sounds, No tenderness, No mass Back Exam: normal inspection, normal range of motion, No CVA tenderness, No vertebral tenderness Extremity Exam: normal inspection, normal range of motion, pelvis stable, other (Tenderness to palpation and some swelling at the dorsal aspect of the left foot. Overlying soft tissue intact. No open or draining lesions. No signs of cellulitis.) Neurologic Exam: alert, oriented x 3, cooperative, normal mood/affect, sensation nml, No motor deficits Skin Exam: normal color, warm, dry, No rash Lymphatic Exam: No adenopathy SpO2 Interpretation: normal SpO2: 95 O2 Delivery: Room Air - Course Nursing assessment & vital signs reviewed: Yes - Radiology Ultrasound Exam Venous Lower Extremity Ultrasound: tele radiology report (Nonoccluding thrombus left lower extremity) Ordered Tests: Active Orders 24 hr Category Date Time Status FOOT (MINIMUM 3 VIEWS) Stat Exams 09/06/24 12:57 Completed VENOUS UNILAT/LIMITED EXTREMIT [US] Stat Exams 09/06/24 13:00 Completed PT INR [PROTIME WITH INR] Stat Lab 09/06/24 14:35 Completed Medication Summary Discontinued Medications Generic Name Dose Route Start Last Admin Trade Name Terry PRN Reason Stop Dose Admin Acetaminophen 975 mg 09/06/24 12:58 09/06/24 13:05 Acetaminophen 325 Mg Tablet PO 09/06/24 12:59 975 mg STAT ONE Administration Acetaminophen Confirm 09/06/24 13:04 Acetaminophen 325 Mg Tablet Administered 09/06/24 13:05 Dose 975 mg .ROUTE .STK-MED ONE Lab/Rad Data: Laboratory Results 09/06/24 Range/Units 14:35 PT 29.3 H (9.4-12.5) SECONDS INR 2.88 (0.8-3.0) - Progress Progress: improved Progress Note: Discussed the case with nurse eliana Blanton from the [facility] [address] [facility], phone number [phone] She advised for patient to continue taking his Coumadin. Patient is therapeutic on his Coumadin at 2.88. They will follow-up with him tomorrow to reassess whether or not they want him to continue the Coumadin versus start another agent. Patient resting comfortably. X-rays of the left foot were negative for fracture dislocation. We will discharge patient home. He declined crutches. Patient agrees to follow-up as planned. Patient voices no other complaints or concerns at this time. Portions of this note were created with voice recognition technology. There may be grammatical, spelling, punctuation or sound alike errors Complexity of problem addressed is moderate acute complicated. No critical care time. Complex of data reviewed and analyzed is extensive. Test ordered test reviewed results analyzed and correlated clinically with history and physical exam. Management discussed with [facility] nurse eliana Blanton. We spoke to nurse sigifredo at approximately 3:25 PM. Risk of complication and or risk of morbidity/mortality of patient management is low. Vital stable. Time spent to discharge patient is approximately 15 minutes. Plan of care established for shared decision making. No social determinants of health present to impede follow-up. Portions of this note were created with voice recognition technology. There may be grammatical, spelling, punctuation or sound alike errors 09/06/24 15:40 Counseled pt/family regarding: lab results, diagnosis, need for follow-up, rad results - Departure Departure Disposition: Home Clinical Impression: DVT (deep venous thrombosis), Foot pain Condition: Stable Critical Care Time: No Referrals: DIAN MOSQUERA PA [Primary Care Provider] - Follow up/PCP as directed Additional Instructions: Discharge/Care Plan GEORGI HALEY was seen on 09/06/24 in the Emergency Room. The patient was counseled regarding Diagnosis,Lab results, Imaging studies, need for follow up and when to return to the Emergency Room. Prescriptions given: Discharge Note I have spoken with the patient and/or caregivers. I have explained the patient's condition, diagnosis and treatment plan based on the information available to me at this time. I have answered the patient's and/or caregiver's questions and addressed any concerns. The patient and/or caregivers have as good understanding of the patient's diagnosis, condition and treatment plan as can be expected at this point. The vital signs have been stable. The patient's condition is stable and appropriate for discharge from the emergency department. The patient will pursue further outpatient evaluation with the primary care physician or other designated or consulting physician as outlined in the discharge instructions. The patient and/or caregivers are agreeable to this plan of care and follow-up instructions have been explained in detail. The patient and/or caregivers have received these instruction. The patient/and or caregivers are aware that any significant change in condition or worsening of symptoms should prompt an immediate return to this or the closest emergency department or call 911. Outpatient Orders: Ortho Referral Time Frame: 1 Day, Facility: [facility], Location: ORTHO CLINIC
[2024-09-06] MEDS ORDERED: TYLENOL 325 MG ONE (13:04)
[2024-09-06] MEDS: TYLENOL 325 MG PO ONE (13:05)
[2024-09-06 13:08] VITALS: RESP 18
--- NOTE | 2024-09-06 14:02 | XRAY ---
Indication: Pain. Comparison: None 3 nonweightbearing views left foot demonstrates small posterior/plantar heel spurs, tiny navicular accessory ossicle, and mild scattered vascular calcifications. No other bony, articular, or soft tissue abnormalities.
--- NOTE | 2024-09-06 14:11 | XRAY ---
Indication: Pain. DVT. Two-dimensional sonogram and color Doppler imaging major venous vessels left leg performed. Comparison: None Distal femoral vein demonstrates nonoccluding thrombus. No thrombus in remaining deep venous vessels left leg including greater saphenous vein. Patent veins demonstrate normal compressibility and normal venous waveforms. Impression: Nonoccluding DVT distal femoral vein.
[2024-09-06 14:54] LABS: INR 2.88 (0.8-3.0); PROTIME 29.3 SECONDS (9.4-12.5)
[2024-09-06 15:02] VITALS: BP 128/89; PULSE 86
[2024-09-06 15:40] VITALS: O2SAT 95
== END 2024-09-06 15:59 | disposition home or self-care (01) ==
LOC: ED 11:41
DX: I82.412 Acute embolism and thrombosis of left femoral vein (principal); M79.672 Pain in left foot; I10 Essential (primary) hypertension; Z79.01 Long term (current) use of anticoagulants; Z79.899 Other long term (current) drug therapy
CPT/HCPCS: 36415; 73630; 85610; 93971; 99284; 99285; A9270-GY